=== PATIENT | male | born 1960 | race Two or more races ===

== ENCOUNTER 2017-10-04 18:32 | Emergency (ER) | payer MEDICAID ==
[~2017-10-04] VITALS: Ht 182.9 cm; Wt 95.0 kg
[2017-10-04] MEDS ORDERED: SODIUM CHLORIDE 0.9% 1,000 ML IV ONE (18:59)
[2017-10-04] MEDS ORDERED: KETOROLAC 30MG/ML VIAL IV ONE (19:00)
[2017-10-04 19:29] LABS: BASOPHILS % 0.5 % (0.0-2.0); EOSINOPHILS % 1.1 % (0.0-5.0); HEMATOCRIT. 40.6 % (42.0-52.0); HEMOGLOBIN. 13.7 g/dL (14.0-18.0); LYMPHOCYTES % 19.8 % (20.0-50.0); MEAN CORPUSCULAR HEMOGLOBIN 32.4 pg (28.0-32.0); MEAN CORPUSCULAR VOLUME 96.2 fL (80.0-94.0); MONOCYTES % 6.5 % (2.0-8.0); NEUTROPHILS % 72.1 % (40.0-76.0); PLATELET 254 x1000/uL (130-400); RED BLOOD CELL COUNT 4.22 mill/uL (4.7-6.1); RED CELL DISTRIBUTION WIDTH 13.4 % (11.6-14.6)
[2017-10-04 19:39] LABS: CARBON DIOXIDE 22 mEq/L (21-32); CHLORIDE 106 mEq/L (98-107)
[2017-10-04 19:53] LABS: ETHANOL BLOOD 306 mg/dL
[2017-10-04] MEDS ORDERED: MORPHINE SULFATE 4 MG/ML CPJ (NOT FOR IM USE) IV ONE (22:15)
[2017-10-04] MEDS ORDERED: ACETAMINOPHEN 325MG TABLET PO ONE (22:15)
[2017-10-05] MEDS ORDERED: GADOBENATE DIMEGLUMINE 529 MG/ML 10ML IV ONE (00:54)
[2017-10-05] MEDS ORDERED: HYDROCODONE/ACETAMINOPHEN 5/325MG TABLET PO ONE (02:00)
[2017-10-05 02:05] VITALS: BP 119/85
== END 2017-10-05 02:59 | disposition home or self-care (01) ==
LOC: ER 19:05
DX: M54.5 Low back pain (principal); I10 Essential (primary) hypertension; M51.26 Other intervertebral disc displacement, lumbar region; G89.29 Other chronic pain; R20.0 Anesthesia of skin
CPT/HCPCS: 36415; 72158; 80053; 85025; 96361; 96374; 99285; A9577; G0482; J1885; J7030; Z7610

== ENCOUNTER 2017-11-01 12:36 | Emergency (ER) | payer MEDICAID ==
[~2017-11-01] VITALS: Ht 175.3 cm; Wt 82.0 kg
[2017-11-01] MEDS ORDERED: CARI350T PO (12:45)
[2017-11-01] MEDS ORDERED: HYDR-523 PO (12:45)
[2017-11-01 14:55] VITALS: BP 101/56
[2017-11-01] MEDS ORDERED: ACETAMINOPHEN WITH CODEINE 300/30MG TABLET PO ONE (15:00)
== END 2017-11-01 16:02 | disposition home or self-care (01) ==
LOC: ER 12:56
DX: M17.12 Unilateral primary osteoarthritis, left knee (principal); I10 Essential (primary) hypertension
CPT/HCPCS: 73562; 99284

== ENCOUNTER 2018-11-28 15:22 | Inpatient (IN) | payer MEDICAID ==
[~2018-11-28] VITALS: Ht 188 cm; Wt 103.4 kg
[~2018-11-28 15:22] MED LIST: HYDR-523 PO; S350 PO
[2018-11-28] MEDS ORDERED: HYDR12.529 PO (15:34)
[2018-11-28] MEDS ORDERED: METHYLPREDNISOLONE SOD SUCC 125 MG/2 ML VIAL IV STA (15:47)
[2018-11-28] MEDS ORDERED: SODIUM CHLORIDE 0.9% 1,000 ML IV ONE (15:53)
[2018-11-28] MEDS ORDERED: DIPHENHYDRAMINE 50MG/ML VIAL IV ONE (16:00)
[2018-11-28] MEDS ORDERED: FAMOTIDINE 20MG/2ML VIAL IV ONE (16:00)
[2018-11-28 17:38] LABS: CHLORIDE 95 mEq/L (98-107)
[2018-11-28 17:45] LABS: BASOPHILS % 0.5 % (0.0-2.0); HEMATOCRIT. 37.7 % (42.0-52.0); HEMOGLOBIN. 12.8 g/dL (14.0-18.0); LYMPHOCYTES % 15.8 % (20.0-50.0); MEAN CORPUSCULAR HEMOGLOBIN 32.8 pg (28.0-32.0); MEAN CORPUSCULAR VOLUME 96.7 fL (80.0-94.0); MEAN PLATELET VOLUME 7.4 fl (7.4-10.4); MONOCYTES % 12.2 % (2.0-8.0); NEUTROPHILS % 70.5 % (40.0-76.0); PLATELET 322 x1000/uL (130-400); RED CELL DISTRIBUTION WIDTH 13.5 % (11.6-14.6)
[2018-11-28 18:06] LABS: PARTIAL THROMBOPLASTIN TIME 26.2 sec (23.4-31.0)
[2018-11-28 21:20] VITALS: BP 138/89
[2018-11-28] MEDS ORDERED: MAGNESIUM/ALUMINUM HYDROXIDE/SIMETHICONE 30ML UDC PO PRN (22:45)
[2018-11-28] MEDS ORDERED: IPRATROPIUM/ALBUTEROL 0.5-3(2.5)MG/3ML NEB INH PRN (22:45)
[2018-11-28] MEDS ORDERED: HYDROCODONE/ACETAMINOPHEN 10/325MG TABLET PO PRN (22:45)
[2018-11-28] MEDS ORDERED: LORAZEPAM 2MG/ML CPJ IV PRN (22:45)
[2018-11-28] MEDS: DIPHENHYDRAMINE 50MG/ML VIAL IV PRN (22:45)
[2018-11-28] MEDS: METHYLPREDNISOLONE SOD SUCC 125 MG/2 ML VIAL IV SCH (22:45)
[2018-11-28] MEDS ORDERED: GUAIFENESIN 200MG/10ML SUGAR FREE UDC PO PRN (22:45)
[2018-11-28] MEDS ORDERED: ACETAMINOPHEN 325MG TABLET PO PRN (22:45)
[2018-11-28] MEDS ORDERED: NA PHOS,M-B/NA PHOS,DI-BA ENEMA 118ML PR PRN (22:45)
[2018-11-28] MEDS ORDERED: CLONIDINE 0.1MG TABLET PO PRN (22:45)
[2018-11-28] MEDS ORDERED: DOCUSATE SODIUM 100MG CAPSULE PO PRN (22:45)
[2018-11-28] MEDS ORDERED: ONDANSETRON HCL 4MG/2ML INJ IV PRN (22:45)
[2018-11-28] MEDS ORDERED: MORPHINE SULFATE 2 MG/ML CPJ (NOT FOR IM USE) IV PRN (22:45)
[2018-11-28] MEDS ORDERED: ENOXAPARIN 40MG/0.4ML SYR SUBCUT SCH (23:00)
[2018-11-29] VITALS: BP 133/89
[2018-11-29 00:57] LABS: CHLORIDE 100 mEq/L (98-107)
[2018-11-29] MEDS: HYDROCODONE/ACETAMINOPHEN 10/325MG TABLET PO PRN ×3 (01:17→11:23)
[2018-11-29] MEDS ORDERED: ASPI-986 PO (02:09)
[2018-11-29] MEDS ORDERED: ALLO300T2 PO (02:09)
[2018-11-29 04:00] VITALS: BP 129/81
[2018-11-29] MEDS: METHYLPREDNISOLONE SOD SUCC 125 MG/2 ML VIAL IV SCH ×2 (05:25→11:16)
[2018-11-29] MEDS: DIPHENHYDRAMINE 50MG/ML VIAL IV PRN (05:25)
[2018-11-29 07:50] LABS: HEMATOCRIT. 37.1 % (42.0-52.0); HEMOGLOBIN. 12.7 g/dL (14.0-18.0); MEAN CORPUSCULAR HEMOGLOBIN 32.6 pg (28.0-32.0); MEAN CORPUSCULAR VOLUME 95.4 fL (80.0-94.0); MEAN PLATELET VOLUME 7.2 fl (7.4-10.4); MONOCYTES % 2.3 % (2.0-8.0); NEUTROPHILS % 84.7 % (40.0-76.0); PLATELET 345 x1000/uL (130-400); RED BLOOD CELL COUNT 3.89 mill/uL (4.7-6.1); RED CELL DISTRIBUTION WIDTH 13.3 % (11.6-14.6)
[2018-11-29 08:00] VITALS: BP 151/95
[2018-11-29 11:56] LABS: CHLORIDE 98 mEq/L (98-107)
[2018-11-29 12:00] VITALS: BP 155/92
[2018-11-29 12:07] LABS: LDL CHOLESTEROL 66 mg/dL (5-100)
[2018-11-29 12:10] LABS: HDL CHOLESTEROL 66 mg/dL (40-59)
[2018-11-29 14:37] VITALS: BP 140/82
[2018-11-29 16:00] VITALS: BP 139/88
== END 2018-11-29 17:17 | disposition home or self-care (01) | DRG 811 ==
LOC: ER 15:22 → 7WST 19:38 → ENRESERV 20:15
PROVIDERS: ADMIT Internal Medicine; ATTEND Internal Medicine
DX: T78.3XXA Angioneurotic edema, initial encounter (principal); E87.1 Hypo-osmolality and hyponatremia; E87.8 Other disorders of electrolyte and fluid balance, not elsewhere classified; G89.4 Chronic pain syndrome; I10 Essential (primary) hypertension; M10.9 Gout, unspecified; M19.90 Unspecified osteoarthritis, unspecified site; Z79.899 Other long term (current) drug therapy; Z79.82 Long term (current) use of aspirin
CPT/HCPCS: 36415; 71045; 80048; 80061; 84484; 93005; 96361; 96374; 96375; 99285; J1200; J1650; J2930; J3490; J7030

== ENCOUNTER 2019-03-09 06:16 | Inpatient (IN) | payer MEDICAID ==
[2019-03-09] VITALS (50 sets, daily range): BP systolic 35–170; BP diastolic 28–109
[~2019-03-09] VITALS: Ht 185.4 cm; Wt 101.2 kg
[~2019-03-09 06:16] MED LIST changes: +ALLO300T2 PO; +ASPI-986 PO; +HYDR12.529 PO
[2019-03-09 07:26] LABS: PARTIAL THROMBOPLASTIN TIME 27.1 sec (23.4-31.0)
[2019-03-09] MEDS ORDERED: BACITRACIN 15GM TUBE TOP ONE (07:58)
[2019-03-09] MEDS ORDERED: LIDOCAINE HCL/EPINEPHRINE 1%-EPI 1:100,000 20 ML VIAL ONE (07:58)
[2019-03-09] MEDS ORDERED: BACITRACIN 50,000 UNITS/VIAL ONE (07:58)
[2019-03-09] MEDS ORDERED: NORMAL SALINE 0.9% 10 ML SYR ONE (07:58)
[2019-03-09] MEDS ORDERED: THROMBIN (BOVINE) 5000 UNITS/VIAL TOP ONE ×2 (07:58→13:21)
[2019-03-09] MEDS ORDERED: CLON0.2T PO (09:09)
[2019-03-09] MEDS ORDERED: APIX5TAB PO (09:09)
[2019-03-09] MEDS ORDERED: HYDR25TA PO (09:09)
[2019-03-09] MEDS ORDERED: IBUP-2030 PO (09:09)
[2019-03-09] MEDS ORDERED: TYLENOL #4 PO (09:19)
[2019-03-09] MEDS ORDERED: ASPI-1159 PO (09:21)
[2019-03-09] MEDS ORDERED: ONDANSETRON HCL 4MG/2ML INJ IV PRN ×2 (13:30→14:15)
[2019-03-09] MEDS ORDERED: MORPHINE SULFATE 4 MG/ML CPJ (NOT FOR IM USE) IV PRN (13:30)
[2019-03-09] MEDS ORDERED: HYDROMORPHONE HCL/PF 2MG/ML CPJ IV PRN (13:30)
[2019-03-09] MEDS ORDERED: MEPERIDINE HCL/PF 25MG/ML CPJ IV PRN (13:30)
[2019-03-09] MEDS ORDERED: FENTANYL CITRATE/PF 50MCG/ML 2ML VIAL IV PRN (13:30)
[2019-03-09] MEDS ORDERED: NICARDIPINE 100 MG in SODIUM CHLORIDE 0.9% 60 ML IV PRN (14:15)
[2019-03-09] MEDS ORDERED: HYDROCODONE/ACETAMINOPHEN 5/325MG TABLET PO PRN (14:15)
[2019-03-09] MEDS ORDERED: NALOXONE INJ IV PRN (14:45)
[2019-03-09] MEDS ORDERED: ONDANSETRON INJ IV PRN (14:45)
[2019-03-09] MEDS ORDERED: HYDROMORPHONE PCA 10MG/50ML IV PRN (15:00)
[2019-03-09] MEDS: DEXT 5%/LACTATED RINGERS 1,000 ML IV SCH ×2 (15:24→20:55)
[2019-03-09] MEDS: CEFAZOLIN 1000MG PREMIX 50 ML IV SCH ×2 (16:35→22:28)
[2019-03-09] MEDS ORDERED: NICOTINE 21MG PATCH TD NR (18:10)
[2019-03-09] MEDS ORDERED: CEFAZOLIN SODIUM 1000MG/VIAL IV SCH (22:00)
[2019-03-10] VITALS (48 sets, daily range): BP systolic 51–150; BP diastolic 30–92
[2019-03-10] MEDS: DIPHENHYDRAMINE INJ IV PRN ×2 (01:11→05:09)
[2019-03-10] MEDS: IPRATROPIUM/ALBUTEROL 0.5-3(2.5)MG/3ML NEB HHN SCH ×4 (01:55→21:28)
[2019-03-10] MEDS: BUDESONIDE 0.5MG/2ML NEB HHN SCH ×3 (02:03→21:27)
[2019-03-10] MEDS: DEXT 5%/LACTATED RINGERS 1,000 ML IV SCH ×2 (03:35→15:02)
[2019-03-10 05:52] LABS: BASOPHILS % 0.1 % (0.0-2.0); HEMOGLOBIN. 11.6 g/dL (14.0-18.0); LYMPHOCYTES % 7.4 % (20.0-50.0); MEAN CORPUSCULAR HEMOGLOBIN 32.2 pg (28.0-32.0); MEAN CORPUSCULAR VOLUME 94.4 fL (80.0-94.0); MEAN PLATELET VOLUME 7.6 fl (7.4-10.4); MONOCYTES % 7.3 % (2.0-8.0); NEUTROPHILS % 85.2 % (40.0-76.0); PLATELET 252 x1000/uL (130-400); RED CELL DISTRIBUTION WIDTH 14.6 % (11.6-14.6)
[2019-03-10 05:59] LABS: CHLORIDE 100 mEq/L (98-107)
[2019-03-10] MEDS: CEFAZOLIN 1000MG PREMIX 50 ML IV SCH ×3 (06:05→22:12)
[2019-03-10] MEDS ORDERED: OXYCODONE HCL/ACETAMINOPHEN 5/325MG TABLET PO PRN (07:15)
[2019-03-10] MEDS: MORPHINE SULFATE 4 MG/ML CPJ (NOT FOR IM USE) IV PRN (10:22)
[2019-03-10] MEDS: NICOTINE 21MG PATCH TD SCH (10:27)
[2019-03-10] MEDS: OXYCODONE HCL/ACETAMINOPHEN 5/325MG TABLET PO PRN ×2 (11:10→18:49)
[2019-03-10] MEDS ORDERED: SODIUM CHLORIDE 0.9% 1,000 ML IV NR (22:30)
[2019-03-11] VITALS (7 sets, daily range): BP systolic 105–127; BP diastolic 65–82
[2019-03-11] MEDS: MORPHINE SULFATE 4 MG/ML CPJ (NOT FOR IM USE) IV PRN ×6 (00:19→22:24)
[2019-03-11] MEDS: OXYCODONE HCL/ACETAMINOPHEN 5/325MG TABLET PO PRN ×4 (02:32→21:15)
[2019-03-11] MEDS: CEFAZOLIN 1000MG PREMIX 50 ML IV SCH ×2 (05:47→13:02)
[2019-03-11 06:14] LABS: CHLORIDE 101 mEq/L (98-107)
[2019-03-11 06:30] LABS: BASOPHILS % 0.4 % (0.0-2.0); EOSINOPHILS % 0.1 % (0.0-5.0); HEMATOCRIT. 29.9 % (42.0-52.0); HEMOGLOBIN. 10.2 g/dL (14.0-18.0); LYMPHOCYTES % 10.6 % (20.0-50.0); MEAN CORPUSCULAR HEMOGLOBIN 32.6 pg (28.0-32.0); MEAN CORPUSCULAR VOLUME 95.4 fL (80.0-94.0); MEAN PLATELET VOLUME 7.6 fl (7.4-10.4); MONOCYTES % 6.9 % (2.0-8.0); PLATELET 219 x1000/uL (130-400); RED BLOOD CELL COUNT 3.13 mill/uL (4.7-6.1); RED CELL DISTRIBUTION WIDTH 14.4 % (11.6-14.6)
[2019-03-11] MEDS: BUDESONIDE 0.5MG/2ML NEB HHN SCH ×2 (08:18→20:25)
[2019-03-11] MEDS: IPRATROPIUM/ALBUTEROL 0.5-3(2.5)MG/3ML NEB HHN SCH ×3 (08:19→20:25)
[2019-03-11] MEDS: NICOTINE 21MG PATCH TD SCH (08:40)
[2019-03-11] MEDS: DEXT 5%/LACTATED RINGERS 1,000 ML IV SCH (13:02)
[2019-03-11] MEDS ORDERED: DEXTROSE 50% WATER 50ML SYRINGE IV PRN (14:45)
[2019-03-11] MEDS: DOCUSATE SODIUM 250MG CAPSULE PO SCH (15:07)
[2019-03-11] MEDS: BLOOD SUGAR DIAGNOSTIC STRIP TEST SCH ×2 (16:48→21:15)
[2019-03-11] MEDS: INSULIN LISPRO 100 UNITS/ML SUBCUT SCH ×2 (16:59→21:00)
[2019-03-11] MEDS ORDERED: BISACODYL 5MG TABLET PO PRN (17:00)
[2019-03-11] MEDS: DIPHENHYDRAMINE 50MG/ML VIAL IV PRN ×2 (18:06→22:59)
[2019-03-12] VITALS: BP 110/63
[2019-03-12] MEDS: DEXT 5%/LACTATED RINGERS 1,000 ML IV SCH ×3 (00:39→13:06)
[2019-03-12] MEDS: IPRATROPIUM/ALBUTEROL 0.5-3(2.5)MG/3ML NEB HHN SCH ×4 (01:55→20:18)
[2019-03-12] MEDS: MORPHINE SULFATE 4 MG/ML CPJ (NOT FOR IM USE) IV PRN ×4 (02:27→20:32)
[2019-03-12] MEDS: OXYCODONE HCL/ACETAMINOPHEN 5/325MG TABLET PO PRN ×3 (03:40→18:12)
[2019-03-12 04:00] VITALS: BP 115/79
[2019-03-12] MEDS: DIPHENHYDRAMINE 50MG/ML VIAL IV PRN ×3 (05:23→21:59)
[2019-03-12 06:31] LABS: BASOPHILS % 0.3 % (0.0-2.0); CHLORIDE 100 mEq/L (98-107); EOSINOPHILS % 0.8 % (0.0-5.0); HEMATOCRIT. 26.1 % (42.0-52.0); LYMPHOCYTES % 14.8 % (20.0-50.0); MEAN CORPUSCULAR HEMOGLOBIN 32.7 pg (28.0-32.0); MEAN CORPUSCULAR VOLUME 95.1 fL (80.0-94.0); MEAN PLATELET VOLUME 7.4 fl (7.4-10.4); MONOCYTES % 8.4 % (2.0-8.0); NEUTROPHILS % 75.7 % (40.0-76.0); PLATELET 199 x1000/uL (130-400); RED BLOOD CELL COUNT 2.74 mill/uL (4.7-6.1); RED CELL DISTRIBUTION WIDTH 14.3 % (11.6-14.6)
[2019-03-12] MEDS: INSULIN LISPRO 100 UNITS/ML SUBCUT SCH ×4 (06:36→21:55)
[2019-03-12] MEDS: BLOOD SUGAR DIAGNOSTIC STRIP TEST SCH ×4 (06:36→21:55)
[2019-03-12 08:00] VITALS: BP 101/62
[2019-03-12] MEDS: BUDESONIDE 0.5MG/2ML NEB HHN SCH (08:33)
[2019-03-12] MEDS: DOCUSATE SODIUM 250MG CAPSULE PO SCH (08:39)
[2019-03-12] MEDS: NICOTINE 21MG PATCH TD SCH (08:41)
[2019-03-12] MEDS: POLYETHYLENE GLYCOL 3350 (17GM) 1 DOSE PACK PO SCH (09:15)
[2019-03-12 12:00] VITALS: BP 108/78
[2019-03-12 16:00] VITALS: BP 108/73
[2019-03-12] MEDS ORDERED: SODIUM CHLORIDE 0.9% 500 ML IV NR (18:00)
[2019-03-12 20:00] VITALS: BP 111/60
[2019-03-13] VITALS: BP 119/70
[2019-03-13] MEDS: MORPHINE SULFATE 4 MG/ML CPJ (NOT FOR IM USE) IV PRN ×5 (00:51→21:15)
[2019-03-13] MEDS: IPRATROPIUM/ALBUTEROL 0.5-3(2.5)MG/3ML NEB HHN SCH ×3 (01:08→21:50)
[2019-03-13] MEDS: BUDESONIDE 0.5MG/2ML NEB HHN SCH (01:09)
[2019-03-13] MEDS: OXYCODONE HCL/ACETAMINOPHEN 5/325MG TABLET PO PRN ×4 (02:13→22:30)
[2019-03-13 04:00] VITALS: BP 121/76
[2019-03-13] MEDS: DIPHENHYDRAMINE 50MG/ML VIAL IV PRN ×2 (04:00→11:24)
[2019-03-13] MEDS: DEXT 5%/LACTATED RINGERS 1,000 ML IV SCH ×2 (04:03→11:43)
[2019-03-13] MEDS: BLOOD SUGAR DIAGNOSTIC STRIP TEST SCH ×4 (06:25→21:26)
[2019-03-13] MEDS: INSULIN LISPRO 100 UNITS/ML SUBCUT SCH ×4 (06:26→21:00)
[2019-03-13 07:13] LABS: BASOPHILS % 0.3 % (0.0-2.0); EOSINOPHILS % 1.2 % (0.0-5.0); HEMATOCRIT. 25.1 % (42.0-52.0); HEMOGLOBIN. 8.8 g/dL (14.0-18.0); LYMPHOCYTES % 14.8 % (20.0-50.0); MEAN CORPUSCULAR HEMOGLOBIN 33.2 pg (28.0-32.0); MEAN CORPUSCULAR VOLUME 95.1 fL (80.0-94.0); MEAN PLATELET VOLUME 7.2 fl (7.4-10.4); MONOCYTES % 9.7 % (2.0-8.0); PLATELET 224 x1000/uL (130-400); RED BLOOD CELL COUNT 2.64 mill/uL (4.7-6.1); RED CELL DISTRIBUTION WIDTH 14.2 % (11.6-14.6)
[2019-03-13 07:42] LABS: CHLORIDE 103 mEq/L (98-107)
[2019-03-13 08:00] VITALS: BP 134/68
[2019-03-13] MEDS: POLYETHYLENE GLYCOL 3350 (17GM) 1 DOSE PACK PO SCH (08:31)
[2019-03-13] MEDS: NICOTINE 21MG PATCH TD SCH (08:31)
[2019-03-13] MEDS: DOCUSATE SODIUM 250MG CAPSULE PO SCH (08:31)
[2019-03-13 12:06] VITALS: BP 114/61
[2019-03-13 16:00] VITALS: BP 146/73
[2019-03-13 20:00] VITALS: BP 124/81
[2019-03-14] VITALS: BP 123/76
[2019-03-14] MEDS: MORPHINE SULFATE 4 MG/ML CPJ (NOT FOR IM USE) IV PRN ×5 (01:35→23:35)
[2019-03-14] MEDS: IPRATROPIUM/ALBUTEROL 0.5-3(2.5)MG/3ML NEB HHN SCH ×4 (03:50→20:00)
[2019-03-14 04:00] VITALS: BP 115/69
[2019-03-14] MEDS: DEXT 5%/LACTATED RINGERS 1,000 ML IV SCH ×2 (04:25→20:44)
[2019-03-14] MEDS: OXYCODONE HCL/ACETAMINOPHEN 5/325MG TABLET PO PRN ×3 (04:34→18:47)
[2019-03-14] MEDS: BLOOD SUGAR DIAGNOSTIC STRIP TEST SCH ×4 (07:04→20:35)
[2019-03-14] MEDS: INSULIN LISPRO 100 UNITS/ML SUBCUT SCH ×4 (07:05→20:53)
[2019-03-14 08:00] VITALS: BP 119/72
[2019-03-14] MEDS: NICOTINE 21MG PATCH TD SCH (08:23)
[2019-03-14] MEDS: DOCUSATE SODIUM 250MG CAPSULE PO SCH (08:23)
[2019-03-14] MEDS: POLYETHYLENE GLYCOL 3350 (17GM) 1 DOSE PACK PO SCH (08:24)
[2019-03-14 12:00] VITALS: BP 110/68
[2019-03-14 16:00] VITALS: BP 144/82
[2019-03-14 20:00] VITALS: BP 125/75
[2019-03-14] MEDS: DIPHENHYDRAMINE 50MG/ML VIAL IV PRN (20:57)
[2019-03-15] VITALS: BP 120/71
[2019-03-15] MEDS: IPRATROPIUM/ALBUTEROL 0.5-3(2.5)MG/3ML NEB HHN SCH ×5 (01:10→20:28)
[2019-03-15] MEDS: OXYCODONE HCL/ACETAMINOPHEN 5/325MG TABLET PO PRN ×4 (02:03→21:27)
[2019-03-15 04:00] VITALS: BP 110/64
[2019-03-15] MEDS: MORPHINE SULFATE 4 MG/ML CPJ (NOT FOR IM USE) IV PRN ×3 (05:42→23:27)
[2019-03-15] MEDS: BLOOD SUGAR DIAGNOSTIC STRIP TEST SCH ×4 (05:46→21:10)
[2019-03-15 06:14] LABS: BASOPHILS % 0.3 % (0.0-2.0); EOSINOPHILS % 1.7 % (0.0-5.0); HEMATOCRIT. 26.5 % (42.0-52.0); HEMOGLOBIN. 9.2 g/dL (14.0-18.0); LYMPHOCYTES % 15.6 % (20.0-50.0); MEAN CORPUSCULAR HEMOGLOBIN 32.8 pg (28.0-32.0); MEAN CORPUSCULAR VOLUME 93.8 fL (80.0-94.0); MEAN PLATELET VOLUME 6.7 fl (7.4-10.4); MONOCYTES % 11.2 % (2.0-8.0); NEUTROPHILS % 71.2 % (40.0-76.0); PLATELET 346 x1000/uL (130-400); RED BLOOD CELL COUNT 2.82 mill/uL (4.7-6.1); RED CELL DISTRIBUTION WIDTH 14.3 % (11.6-14.6)
[2019-03-15 06:29] LABS: CHLORIDE 102 mEq/L (98-107)
[2019-03-15] MEDS: INSULIN LISPRO 100 UNITS/ML SUBCUT SCH ×4 (06:32→21:00)
[2019-03-15 08:00] VITALS: BP 126/70
[2019-03-15] MEDS: DOCUSATE SODIUM 250MG CAPSULE PO SCH (09:19)
[2019-03-15] MEDS: NICOTINE 21MG PATCH TD SCH (09:19)
[2019-03-15] MEDS: POLYETHYLENE GLYCOL 3350 (17GM) 1 DOSE PACK PO SCH (09:19)
[2019-03-15] MEDS ORDERED: MORPHINE SULFATE 4 MG/ML CPJ (NOT FOR IM USE) IV PRN (10:00)
[2019-03-15 12:00] VITALS: BP 107/65
[2019-03-15] MEDS: DEXT 5%/LACTATED RINGERS 1,000 ML IV SCH (12:47)
[2019-03-15 16:00] VITALS: BP 109/60
[2019-03-15] MEDS: DIPHENHYDRAMINE 50MG/ML VIAL IV PRN (17:49)
[2019-03-15 20:00] VITALS: BP 101/64
[2019-03-16] VITALS: BP 105/66
[2019-03-16] MEDS: IPRATROPIUM/ALBUTEROL 0.5-3(2.5)MG/3ML NEB HHN SCH ×3 (01:54→18:00)
[2019-03-16] MEDS: MORPHINE SULFATE 4 MG/ML CPJ (NOT FOR IM USE) IV PRN ×3 (03:28→13:33)
[2019-03-16 04:00] VITALS: BP 119/72
[2019-03-16] MEDS: OXYCODONE HCL/ACETAMINOPHEN 5/325MG TABLET PO PRN ×2 (04:51→11:32)
[2019-03-16] MEDS: DEXT 5%/LACTATED RINGERS 1,000 ML IV SCH ×2 (06:09→13:33)
[2019-03-16] MEDS: BLOOD SUGAR DIAGNOSTIC STRIP TEST SCH ×3 (06:16→16:45)
[2019-03-16] MEDS: INSULIN LISPRO 100 UNITS/ML SUBCUT SCH ×3 (06:22→17:15)
[2019-03-16 06:23] LABS: BASOPHILS % 0.3 % (0.0-2.0); EOSINOPHILS % 1.3 % (0.0-5.0); HEMATOCRIT. 27.3 % (42.0-52.0); HEMOGLOBIN. 9.4 g/dL (14.0-18.0); LYMPHOCYTES % 14.6 % (20.0-50.0); MEAN CORPUSCULAR HEMOGLOBIN 32.4 pg (28.0-32.0); MEAN CORPUSCULAR VOLUME 93.6 fL (80.0-94.0); MEAN PLATELET VOLUME 6.5 fl (7.4-10.4); MONOCYTES % 9.1 % (2.0-8.0); NEUTROPHILS % 74.7 % (40.0-76.0); PLATELET 447 x1000/uL (130-400); RED BLOOD CELL COUNT 2.92 mill/uL (4.7-6.1); RED CELL DISTRIBUTION WIDTH 13.8 % (11.6-14.6)
[2019-03-16 08:00] VITALS: BP 162/92
[2019-03-16 08:02] LABS: CHLORIDE 101 mEq/L (98-107)
[2019-03-16] MEDS ORDERED: CLONIDINE 0.1MG TABLET PO PRN ×2 (08:45→09:00)
[2019-03-16] MEDS: NICOTINE 21MG PATCH TD SCH (08:54)
[2019-03-16] MEDS: DOCUSATE SODIUM 250MG CAPSULE PO SCH (08:54)
[2019-03-16] MEDS: POLYETHYLENE GLYCOL 3350 (17GM) 1 DOSE PACK PO SCH (08:54)
[2019-03-16 12:15] VITALS: BP 117/68
[2019-03-16] MEDS ORDERED: HYDROMORPHONE HCL/PF 2MG/ML CPJ IV PRN (13:45)
[2019-03-16 16:00] VITALS: BP 110/69
[2019-03-16 19:05] VITALS: BP 110/69
== END 2019-03-16 19:55 | DRG 304 ==
LOC: OR 06:16 → MICUNO 06:17 → 6EST 03-10 12:11 → 5WST 03-10 23:45
PROVIDERS: ADMIT Internal Medicine; ATTEND Internal Medicine
PROC: 0SG10K1 Fusion of 2 or more Lumbar Vertebral Joints with Nonautologous Tissue Substitute, Posterior Approach, Posterior Column, Open Approach (ICD-10-PCS; principal; 2019-03-09)
PROC: 0SG30K1 Fusion of Lumbosacral Joint with Nonautologous Tissue Substitute, Posterior Approach, Posterior Column, Open Approach (ICD-10-PCS; 2019-03-09)
PROC: 01NB0ZZ Release Lumbar Nerve, Open Approach (ICD-10-PCS; 2019-03-09)
DX: M48.00 Spinal stenosis, site unspecified (principal); G82.50 Quadriplegia, unspecified; M47.16 Other spondylosis with myelopathy, lumbar region; E88.2 Lipomatosis, not elsewhere classified; I10 Essential (primary) hypertension; D53.9 Nutritional anemia, unspecified; F17.210 Nicotine dependence, cigarettes, uncomplicated; K59.00 Constipation, unspecified; M47.26 Other spondylosis with radiculopathy, lumbar region; M48.061 Spinal stenosis, lumbar region without neurogenic claudication; Z88.8 Allergy status to other drugs, medicaments and biological substances; R73.9 Hyperglycemia, unspecified; Z71.6 Tobacco abuse counseling
CPT/HCPCS: 36415; 71045; 72100; 76000; 80048; 80320; 82607; 82746; 82962; 83036; 86850; 86900; 93005; 93970; 94640; 95925; 95926; 95928; 95929; 97110; 97116; 97163; 97166; 97530; 97535; J0690; J1170; J1200; J1815; J2270; J3490; J7040; J7042; J7050; J7121; J7620; J7626; G0480

== ENCOUNTER 2019-06-02 20:52 | Emergency (ER) | payer MEDICAID ==
[~2019-06-02] VITALS: Ht 180.3 cm; Wt 101.0 kg
[~2019-06-02 20:52] MED LIST changes: +APIX5TAB PO; +ASPI-1393 PO; -ASPI-986 PO; +CLON0.2T PO; -HYDR-523 PO; -HYDR12.529 PO; +HYDR25TA PO; +IBUP-2030 PO; +TYLENOL #4 PO
[2019-06-02 23:19] LABS: CLARITY URINE CLOUDY (CLEAR); COLOR URINE AMBER (YELLOW); KETONES URINE TRACE (NEGATIVE); LEUKOCYTE ESTERASE URINE 2+ (NEGATIVE); NITRITE URINE NEGATIVE (NEGATIVE); OCCULT BLOOD URINE NEGATIVE (NEGATIVE); PROTEIN URINE NEGATIVE (NEGATIVE); UROBILINOGEN URINE 0.2 E.U./dL (0.2-1.0)
[2019-06-03 00:59] VITALS: BP 104/85
== END 2019-06-03 00:57 | disposition home or self-care (01) ==
LOC: ER 20:52
DX: N39.0 Urinary tract infection, site not specified (principal); M54.9 Dorsalgia, unspecified; R20.2 Paresthesia of skin; I10 Essential (primary) hypertension; M54.30 Sciatica, unspecified side; F17.210 Nicotine dependence, cigarettes, uncomplicated; Z93.0 Tracheostomy status; Z79.82 Long term (current) use of aspirin
CPT/HCPCS: 82962; 87077; 87186; 99283

== ENCOUNTER 2020-05-24 12:46 | Inpatient (IN) | payer MEDICAID ==
[~2020-05-24] VITALS: Ht 180.3 cm; Wt 108.6 kg
[~2020-05-24 12:46] MED LIST changes: -ASPI-1393 PO; +ASPI-1497 PO; +CARI350T28 PO; -S350 PO
[2020-05-24 16:14] LABS: BASOPHILS % 0.5 % (0.0-2.0); EOSINOPHILS % 1.1 % (0.0-5.0); HEMATOCRIT. 38.8 % (42.0-52.0); HEMOGLOBIN. 13.1 g/dL (14.0-18.0); LYMPHOCYTES % 23.7 % (20.0-50.0); MEAN CORPUSCULAR HEMOGLOBIN 31.2 pg (28.0-32.0); MEAN CORPUSCULAR VOLUME 92.8 fL (80.0-94.0); MEAN PLATELET VOLUME 7.1 fl (7.4-10.4); MONOCYTES % 7.1 % (2.0-8.0); NEUTROPHILS % 67.6 % (40.0-76.0); PLATELET 338 x1000/uL (130-400); RED BLOOD CELL COUNT 4.18 mill/uL (4.7-6.1); RED CELL DISTRIBUTION WIDTH 17.2 % (11.6-14.6)
[2020-05-24 16:15] LABS: CHLORIDE 104 mEq/L (98-107)
[2020-05-24 16:20] LABS: PARTIAL THROMBOPLASTIN TIME 27.4 sec (23.4-31.0); PROTHROMBIN TIME 10.1 sec (9.6-11.0)
[2020-05-24 16:54] LABS: CLARITY URINE CLEAR (CLEAR); COLOR URINE YELLOW (YELLOW); KETONES URINE TRACE (NEGATIVE); LEUKOCYTE ESTERASE URINE TRACE (NEGATIVE); NITRITE URINE NEGATIVE (NEGATIVE); OCCULT BLOOD URINE NEGATIVE (NEGATIVE); PROTEIN URINE TRACE (NEGATIVE); SPECIFIC GRAVITY URINE 1.024 (1.005-1.030)
[2020-05-24] MEDS ORDERED: GADOBENATE DIMEGLUMINE 529 MG/ML 10ML IV ONE (17:55)
[2020-05-24] MEDS ORDERED: VANCOMYCIN 1 G PREMIX 200 ML IV SCH (18:45)
[2020-05-24] MEDS ORDERED: SODIUM CHLORIDE 0.9% 1000ML BAG (SEPSIS BOLUS) IV ONE (18:45)
[2020-05-24] MEDS ORDERED: CEFTRIAXONE 2 G PREMIX 50 ML IV ONE (18:45)
[2020-05-24] MEDS ORDERED: DIPHENHYDRAMINE 50MG/ML VIAL IV ONE (21:15)
[2020-05-24] MEDS: DEXT 5%/LACTATED RINGERS 1,000 ML IV SCH (21:30)
[2020-05-24 22:25] VITALS: BP 139/92
[2020-05-24] MEDS ORDERED: MAGNESIUM/ALUMINUM HYDROXIDE/SIMETHICONE 30ML UDC PO PRN (22:45)
[2020-05-24] MEDS ORDERED: HYDROCODONE/ACETAMINOPHEN 5/325MG TABLET PO PRN (22:45)
[2020-05-24] MEDS ORDERED: CLONIDINE 0.1MG TABLET PO PRN (22:45)
[2020-05-24] MEDS ORDERED: MORPHINE SULFATE 2 MG/ML CPJ (NOT FOR IM USE) IV PRN (22:45)
[2020-05-24] MEDS ORDERED: DOCUSATE SODIUM 100MG CAPSULE PO PRN (22:45)
[2020-05-24] MEDS ORDERED: PIPERACILLIN/TAZ 3.375G PREMIX 50 ML IV SCH (22:45)
[2020-05-24] MEDS ORDERED: IPRATROPIUM/ALBUTEROL 0.5-3(2.5)MG/3ML NEB NEB PRN (22:45)
[2020-05-24] MEDS ORDERED: ACETAMINOPHEN 325MG TABLET PO PRN (22:45)
[2020-05-25] VITALS: BP 121/82
[2020-05-25] MEDS: PIPERACILLIN/TAZOBACTAM 3.375 G in DEXT 5% WATER 100 ML IV SCH ×3 (01:26→12:00)
[2020-05-25] MEDS: DIPHENHYDRAMINE 50MG/ML VIAL IV PRN (01:41)
[2020-05-25] MEDS: LINEZOLID 600 MG PREMIX 300 ML IV SCH ×2 (02:48→13:00)
[2020-05-25 04:00] VITALS: BP 108/78
[2020-05-25 06:48] LABS: *AMPHETAMINES SCREEN URINE NEGATIVE (NEGATIVE); *BARBITURATES SCREEN URINE NEGATIVE (NEGATIVE)
[2020-05-25 06:49] LABS: *BENZODIAZEPINES SCREEN URINE NEGATIVE (NEGATIVE); *COCAINE SCREEN URINE PRESUMTIVE POSITIVE (NEGATIVE); CANNABINOID URINE SCREEN NEGATIVE (NEGATIVE); METHADONE URINE SCREEN NEGATIVE (NEGATIVE); OPIATES URINE SCREEN PRESUMTIVE POSITIVE (NEGATIVE); PHENCYCLIDINE URINE SCREEN NEGATIVE (NEGATIVE)
[2020-05-25 07:22] LABS: BASOPHILS % 0.4 % (0.0-2.0); EOSINOPHILS % 2.5 % (0.0-5.0); HEMATOCRIT. 34.3 % (42.0-52.0); HEMOGLOBIN. 11.8 g/dL (14.0-18.0); LYMPHOCYTES % 21.4 % (20.0-50.0); MEAN CORPUSCULAR HEMOGLOBIN 31.6 pg (28.0-32.0); MEAN CORPUSCULAR VOLUME 92.2 fL (80.0-94.0); MEAN PLATELET VOLUME 7.1 fl (7.4-10.4); MONOCYTES % 8.4 % (2.0-8.0); NEUTROPHILS % 67.3 % (40.0-76.0); PLATELET 263 x1000/uL (130-400); RED BLOOD CELL COUNT 3.72 mill/uL (4.7-6.1); RED CELL DISTRIBUTION WIDTH 16.6 % (11.6-14.6)
[2020-05-25 07:41] LABS: CHLORIDE 107 mEq/L (98-107)
[2020-05-25 07:49] LABS: LDL CHOLESTEROL 47 mg/dL (5-100)
[2020-05-25 07:51] LABS: HDL CHOLESTEROL 101 mg/dL (40-59)
[2020-05-25 08:00] VITALS: BP 114/81
[2020-05-25] MEDS: DEXT 5%/LACTATED RINGERS 1,000 ML IV SCH ×2 (09:19→22:47)
[2020-05-25] MEDS ORDERED: THROMBIN (BOVINE) 5000 UNITS/VIAL TOP ONE ×2 (12:44→12:45)
[2020-05-25] MEDS ORDERED: LIDOCAINE HCL/EPINEPHRINE 1%-EPI 1:100,000 20 ML VIAL ONE (12:44)
[2020-05-25] MEDS ORDERED: BACITRACIN 50,000 UNITS/VIAL ONE (12:45)
[2020-05-25] MEDS ORDERED: FENTANYL CITRATE/PF 50MCG/ML 2ML VIAL ONE (13:51)
[2020-05-25] MEDS ORDERED: GLYCOPYRROLATE 0.2 MG/ML 2ML VIAL ONE (13:52)
[2020-05-25] MEDS ORDERED: LIDOCAINE HCL/PF 1% 10 MG/ML 5ML VIAL ONE (13:52)
[2020-05-25] MEDS ORDERED: PROPOFOL 200MG/20ML VIAL IV ONE (13:52)
[2020-05-25] MEDS ORDERED: ROCURONIUM BROMIDE 10MG/ML VIAL 5ML IV ONE ×2 (13:55→14:38)
[2020-05-25] MEDS ORDERED: NICARDIPINE 100 MG in SODIUM CHLORIDE 0.9% 60 ML IV PRN (15:00)
[2020-05-25] MEDS ORDERED: MORPHINE SULFATE 4 MG/ML CPJ (NOT FOR IM USE) IV PRN (15:00)
[2020-05-25] MEDS ORDERED: ALBUTEROL (0.5%) 2.5MG/0.5ML NEB HHN NR (17:30)
[2020-05-25] MEDS ORDERED: METOCLOPRAMIDE HCL 10MG/2ML VIAL IV PRN (17:30)
[2020-05-25] MEDS ORDERED: ONDANSETRON HCL 4MG/2ML INJ IV PRN (17:30)
[2020-05-25] MEDS ORDERED: MEPERIDINE HCL/PF 25MG/ML CPJ IV PRN (17:30)
[2020-05-25] MEDS ORDERED: HYDROMORPHONE HCL/PF 2MG/ML (OR) ONE (18:09)
[2020-05-25] MEDS: HYDROMORPHONE HCL/PF 2MG/ML CPJ IV PRN ×4 (18:10→19:01)
[2020-05-25] MEDS ORDERED: NALOXONE INJ IV PRN (18:15)
[2020-05-25] MEDS ORDERED: DIPHENHYDRAMINE INJ IV PRN (18:15)
[2020-05-25] MEDS ORDERED: ONDANSETRON INJ IV PRN (18:15)
[2020-05-25 22:00] VITALS: BP 127/80
[2020-05-25] MEDS ORDERED: CEFAZOLIN SODIUM 1000MG/VIAL IV SCH (22:00)
[2020-05-25] MEDS ORDERED: CYCLOBENZAPRINE 10MG TABLET PO NR (22:00)
[2020-05-25] MEDS: OXYCODONE HCL/ACETAMINOPHEN 5/325MG TABLET PO PRN (23:02)
[2020-05-26 00:18] VITALS: BP 125/76
[2020-05-26] MEDS: LINEZOLID 600 MG PREMIX 300 ML IV SCH ×2 (00:59→17:11)
[2020-05-26] MEDS: DIPHENHYDRAMINE 50MG/ML VIAL IV PRN ×2 (01:07→08:49)
[2020-05-26 04:00] VITALS: BP 100/51
[2020-05-26 07:54] VITALS: BP 83/52
[2020-05-26] MEDS: DEXT 5%/LACTATED RINGERS 1,000 ML IV SCH ×2 (10:06→20:18)
[2020-05-26] MEDS: OXYCODONE HCL/ACETAMINOPHEN 5/325MG TABLET PO PRN ×2 (10:31→15:27)
[2020-05-26 12:13] VITALS: BP 114/79
[2020-05-26] MEDS: PIPERACILLIN/TAZOBACTAM 3.375 G in DEXT 5% WATER 100 ML IV SCH ×5 (13:04→18:30)
[2020-05-26] MEDS: CEFAZOLIN 1000MG PREMIX 50 ML IV SCH ×2 (15:33→21:51)
[2020-05-26 15:56] VITALS: BP 131/80
[2020-05-26] MEDS: HYDROMORPHONE PCA 10MG/50ML IV PRN (16:41)
[2020-05-26] MEDS: ALLOPURINOL 300 MG TABLET PO SCH (17:11)
[2020-05-26 20:00] VITALS: BP 91/66
[2020-05-26] MEDS: BUDESONIDE 0.5MG/2ML NEB HHN SCH (22:35)
[2020-05-26] MEDS: IPRATROPIUM/ALBUTEROL 0.5-3(2.5)MG/3ML NEB HHN SCH (22:35)
[2020-05-27] VITALS: BP 110/77
[2020-05-27] MEDS: PIPERACILLIN/TAZOBACTAM 3.375 G in DEXT 5% WATER 100 ML IV SCH ×4 (00:10→17:31)
[2020-05-27] MEDS: LINEZOLID 600 MG PREMIX 300 ML IV SCH ×2 (01:21→14:20)
[2020-05-27] MEDS: IPRATROPIUM/ALBUTEROL 0.5-3(2.5)MG/3ML NEB HHN SCH ×4 (02:14→21:46)
[2020-05-27 04:00] VITALS: BP 97/62
[2020-05-27 05:46] LABS: BASOPHILS % 0.2 % (0.0-2.0); EOSINOPHILS % 0.7 % (0.0-5.0); HEMATOCRIT. 27.9 % (42.0-52.0); HEMOGLOBIN. 9.6 g/dL (14.0-18.0); LYMPHOCYTES % 8.4 % (20.0-50.0); MEAN CORPUSCULAR HEMOGLOBIN 31.6 pg (28.0-32.0); MEAN CORPUSCULAR VOLUME 91.7 fL (80.0-94.0); MONOCYTES % 5.2 % (2.0-8.0); NEUTROPHILS % 85.5 % (40.0-76.0); PLATELET 225 x1000/uL (130-400); RED BLOOD CELL COUNT 3.05 mill/uL (4.7-6.1); RED CELL DISTRIBUTION WIDTH 16.4 % (11.6-14.6)
[2020-05-27 06:06] LABS: CHLORIDE 103 mEq/L (98-107)
[2020-05-27] MEDS: DEXT 5%/LACTATED RINGERS 1,000 ML IV SCH ×2 (06:08→17:00)
[2020-05-27 06:15] LABS: TOTAL IRON BINDING CAPACITY 301 ug/dL (250-450)
[2020-05-27 06:21] LABS: FOLIC ACID (FOLATE) SERUM 9.8 ng/mL (>5.38)
[2020-05-27 07:58] VITALS: BP 90/58
[2020-05-27] MEDS: ALLOPURINOL 300 MG TABLET PO SCH ×2 (09:26→17:31)
[2020-05-27] MEDS: BUDESONIDE 0.5MG/2ML NEB HHN SCH ×3 (10:17→21:47)
[2020-05-27] MEDS ORDERED: GADOBENATE DIMEGLUMINE 529 MG/ML 10ML IV ONE (11:24)
[2020-05-27 11:56] VITALS: BP 93/53
[2020-05-27 16:57] VITALS: BP 94/60
[2020-05-27 20:00] VITALS: BP 109/59
[2020-05-28] VITALS: BP 122/54
[2020-05-28] MEDS: PIPERACILLIN/TAZOBACTAM 3.375 G in DEXT 5% WATER 100 ML IV SCH ×5 (00:08→23:40)
[2020-05-28] MEDS: LINEZOLID 600 MG PREMIX 300 ML IV SCH ×2 (01:21→13:05)
[2020-05-28] MEDS: DEXT 5%/LACTATED RINGERS 1,000 ML IV SCH ×3 (02:49→23:39)
[2020-05-28 04:00] VITALS: BP 99/62
[2020-05-28 07:46] LABS: CHLORIDE 105 mEq/L (98-107)
[2020-05-28 07:48] LABS: BASOPHILS % 0.1 % (0.0-2.0); EOSINOPHILS % 2.1 % (0.0-5.0); HEMATOCRIT. 27.4 % (42.0-52.0); HEMOGLOBIN. 9.5 g/dL (14.0-18.0); LYMPHOCYTES % 12.6 % (20.0-50.0); MEAN CORPUSCULAR HEMOGLOBIN 31.9 pg (28.0-32.0); MEAN CORPUSCULAR VOLUME 91.8 fL (80.0-94.0); MEAN PLATELET VOLUME 7.2 fl (7.4-10.4); MONOCYTES % 6.8 % (2.0-8.0); NEUTROPHILS % 78.4 % (40.0-76.0); PLATELET 224 x1000/uL (130-400); RED BLOOD CELL COUNT 2.98 mill/uL (4.7-6.1); RED CELL DISTRIBUTION WIDTH 16.2 % (11.6-14.6)
[2020-05-28 08:00] VITALS: BP 136/87
[2020-05-28] MEDS: IPRATROPIUM/ALBUTEROL 0.5-3(2.5)MG/3ML NEB HHN SCH ×4 (09:04→21:48)
[2020-05-28] MEDS: BUDESONIDE 0.5MG/2ML NEB HHN SCH ×2 (09:04→21:48)
[2020-05-28] MEDS: ALLOPURINOL 300 MG TABLET PO SCH ×2 (09:17→18:25)
[2020-05-28 12:06] VITALS: BP 101/54
[2020-05-28] MEDS: CYANOCOBALAMIN 1000MCG/ML VIAL IM SCH (13:30)
[2020-05-28] MEDS: ASCORBIC ACID 500 MG TABLET PO SCH (13:30)
[2020-05-28 16:08] VITALS: BP 110/60
[2020-05-28] MEDS: FERROUS SULFATE 325MG TABLET PO SCH (18:25)
[2020-05-28 20:11] VITALS: BP 102/66
[2020-05-29] VITALS: BP 115/59
[2020-05-29] MEDS: IPRATROPIUM/ALBUTEROL 0.5-3(2.5)MG/3ML NEB HHN SCH ×4 (01:11→21:50)
[2020-05-29] MEDS: LINEZOLID 600 MG PREMIX 300 ML IV SCH ×2 (01:42→13:08)
[2020-05-29 04:00] VITALS: BP 117/71
[2020-05-29] MEDS: FERROUS SULFATE 325MG TABLET PO SCH ×3 (06:43→17:26)
[2020-05-29] MEDS: PIPERACILLIN/TAZOBACTAM 3.375 G in DEXT 5% WATER 100 ML IV SCH ×4 (06:44→23:16)
[2020-05-29 07:04] LABS: BASOPHILS % 0.2 % (0.0-2.0); EOSINOPHILS % 1.8 % (0.0-5.0); HEMATOCRIT. 28.6 % (42.0-52.0); LYMPHOCYTES % 11.4 % (20.0-50.0); MEAN CORPUSCULAR HEMOGLOBIN 32.3 pg (28.0-32.0); MEAN CORPUSCULAR VOLUME 92.8 fL (80.0-94.0); MONOCYTES % 6.3 % (2.0-8.0); NEUTROPHILS % 80.3 % (40.0-76.0); PLATELET 237 x1000/uL (130-400); RED BLOOD CELL COUNT 3.08 mill/uL (4.7-6.1); RED CELL DISTRIBUTION WIDTH 16.2 % (11.6-14.6)
[2020-05-29] MEDS: BUDESONIDE 0.5MG/2ML NEB HHN SCH ×2 (07:33→21:50)
[2020-05-29 07:51] LABS: CHLORIDE 106 mEq/L (98-107)
[2020-05-29 08:00] VITALS: BP 103/70
[2020-05-29] MEDS: ASCORBIC ACID 500 MG TABLET PO SCH (09:02)
[2020-05-29] MEDS: ALLOPURINOL 300 MG TABLET PO SCH ×2 (09:02→17:26)
[2020-05-29] MEDS: CYANOCOBALAMIN 1000MCG/ML VIAL IM SCH (09:02)
[2020-05-29] MEDS: DEXT 5%/LACTATED RINGERS 1,000 ML IV SCH ×2 (09:07→18:28)
[2020-05-29] MEDS: DIPHENHYDRAMINE 50MG/ML VIAL IV PRN (11:53)
[2020-05-29 12:00] VITALS: BP 102/73
[2020-05-29] MEDS: HYDROMORPHONE PCA 10MG/50ML IV PRN (12:13)
[2020-05-29 16:00] VITALS: BP 99/62
[2020-05-29 20:00] VITALS: BP 93/56
[2020-05-30] VITALS: BP 100/61
[2020-05-30] MEDS: LINEZOLID 600 MG PREMIX 300 ML IV SCH ×2 (00:43→13:50)
[2020-05-30] MEDS: IPRATROPIUM/ALBUTEROL 0.5-3(2.5)MG/3ML NEB HHN SCH ×3 (01:44→14:00)
[2020-05-30 04:00] VITALS: BP 101/52
[2020-05-30] MEDS: PIPERACILLIN/TAZOBACTAM 3.375 G in DEXT 5% WATER 100 ML IV SCH ×3 (04:54→17:58)
[2020-05-30 06:42] LABS: BASOPHILS % 0.3 % (0.0-2.0); EOSINOPHILS % 1.8 % (0.0-5.0); HEMATOCRIT. 28.7 % (42.0-52.0); HEMOGLOBIN. 10.1 g/dL (14.0-18.0); LYMPHOCYTES % 10.6 % (20.0-50.0); MEAN CORPUSCULAR HEMOGLOBIN 32.4 pg (28.0-32.0); MEAN CORPUSCULAR VOLUME 91.6 fL (80.0-94.0); MEAN PLATELET VOLUME 6.7 fl (7.4-10.4); MONOCYTES % 6.8 % (2.0-8.0); NEUTROPHILS % 80.5 % (40.0-76.0); PLATELET 247 x1000/uL (130-400); RED BLOOD CELL COUNT 3.13 mill/uL (4.7-6.1); RED CELL DISTRIBUTION WIDTH 16.4 % (11.6-14.6)
[2020-05-30 07:00] LABS: CHLORIDE 105 mEq/L (98-107)
[2020-05-30 08:00] VITALS: BP 99/65
[2020-05-30] MEDS: ASCORBIC ACID 500 MG TABLET PO SCH (08:48)
[2020-05-30] MEDS: FERROUS SULFATE 325MG TABLET PO SCH ×2 (08:48→12:57)
[2020-05-30] MEDS: CYANOCOBALAMIN 1000MCG/ML VIAL IM SCH (08:48)
[2020-05-30] MEDS: ALLOPURINOL 300 MG TABLET PO SCH ×2 (08:48→17:58)
[2020-05-30] MEDS: DEXT 5%/LACTATED RINGERS 1,000 ML IV SCH ×2 (08:49→15:38)
[2020-05-30] MEDS: DIPHENHYDRAMINE 50MG/ML VIAL IV PRN (09:40)
[2020-05-30 12:00] VITALS: BP 114/66
[2020-05-30] MEDS: IRON SUCROSE COMPLEX 100 MG/5 ML ML IV SCH (13:50)
[2020-05-30] MEDS: NYSTATIN POWDER 15GM TOP SCH ×2 (14:00→15:39)
[2020-05-30 16:00] VITALS: BP 111/75
[2020-05-30 20:26] VITALS: BP 125/77
[2020-05-30] MEDS: OXYCODONE HCL/ACETAMINOPHEN 5/325MG TABLET PO PRN (20:54)
[2020-05-30] MEDS: ONDANSETRON HCL 4MG/2ML INJ IV PRN (22:19)
[2020-05-30] MEDS: MORPHINE SULFATE 4 MG/ML CPJ (NOT FOR IM USE) IV PRN (22:21)
[2020-05-31 00:41] VITALS: BP 124/79
[2020-05-31] MEDS: DEXT 5%/LACTATED RINGERS 1,000 ML IV SCH ×3 (00:42→21:18)
[2020-05-31] MEDS: CEFTRIAXONE 2 G in DEXTROSE 5% WATER 50 ML IV SCH ×2 (00:42→20:56)
[2020-05-31] MEDS: IPRATROPIUM/ALBUTEROL 0.5-3(2.5)MG/3ML NEB HHN SCH ×4 (02:58→21:20)
[2020-05-31 04:46] VITALS: BP 96/58
[2020-05-31] MEDS: OXYCODONE HCL/ACETAMINOPHEN 5/325MG TABLET PO PRN ×2 (06:21→16:28)
[2020-05-31 07:55] VITALS: BP 111/76
[2020-05-31] MEDS: MORPHINE SULFATE 4 MG/ML CPJ (NOT FOR IM USE) IV PRN ×3 (10:18→22:12)
[2020-05-31] MEDS: IRON SUCROSE COMPLEX 100 MG/5 ML ML IV SCH (10:18)
[2020-05-31] MEDS: CYANOCOBALAMIN 1000MCG/ML VIAL IM SCH (10:18)
[2020-05-31] MEDS: ASCORBIC ACID 500 MG TABLET PO SCH (10:18)
[2020-05-31] MEDS: ALLOPURINOL 300 MG TABLET PO SCH ×2 (10:18→16:26)
[2020-05-31] MEDS: DIPHENHYDRAMINE 50MG/ML VIAL IV PRN (11:44)
[2020-05-31 12:21] VITALS: BP 111/73
[2020-05-31 15:52] VITALS: BP 99/53
[2020-05-31] MEDS: NYSTATIN POWDER 15GM TOP SCH ×2 (16:26→20:56)
[2020-05-31 20:03] VITALS: BP 126/78
[2020-06-01] VITALS (7 sets, daily range): BP systolic 105–118; BP diastolic 65–72
[2020-06-01] MEDS: MORPHINE SULFATE 4 MG/ML CPJ (NOT FOR IM USE) IV PRN ×5 (01:41→20:43)
[2020-06-01] MEDS: DEXT 5%/LACTATED RINGERS 1,000 ML IV SCH ×2 (06:10→16:41)
[2020-06-01] MEDS: NYSTATIN POWDER 15GM TOP SCH ×3 (06:10→20:42)
[2020-06-01] MEDS: IPRATROPIUM/ALBUTEROL 0.5-3(2.5)MG/3ML NEB HHN SCH ×3 (08:49→13:40)
[2020-06-01] MEDS: CYANOCOBALAMIN 1000MCG/ML VIAL IM SCH (08:50)
[2020-06-01] MEDS: ALLOPURINOL 300 MG TABLET PO SCH ×2 (08:50→16:41)
[2020-06-01] MEDS: ASCORBIC ACID 500 MG TABLET PO SCH (08:50)
[2020-06-01] MEDS: IRON SUCROSE COMPLEX 100 MG/5 ML ML IV SCH (08:50)
[2020-06-01] MEDS: CEFTRIAXONE 2 G in DEXTROSE 5% WATER 50 ML IV SCH (20:23)
[2020-06-02 00:10] VITALS: BP 120/72
[2020-06-02] MEDS: MORPHINE SULFATE 4 MG/ML CPJ (NOT FOR IM USE) IV PRN ×4 (00:51→22:40)
[2020-06-02] MEDS: DEXT 5%/LACTATED RINGERS 1,000 ML IV SCH ×3 (02:46→23:00)
[2020-06-02 04:23] VITALS: BP 99/68
[2020-06-02] MEDS: NYSTATIN POWDER 15GM TOP SCH ×3 (05:59→20:57)
[2020-06-02] MEDS: OXYCODONE HCL/ACETAMINOPHEN 5/325MG TABLET PO PRN ×2 (06:18→14:42)
[2020-06-02 08:00] VITALS: BP 107/66
[2020-06-02] MEDS: ASCORBIC ACID 500 MG TABLET PO SCH (08:08)
[2020-06-02] MEDS: FERROUS SULFATE 325MG TABLET PO SCH ×3 (08:08→16:52)
[2020-06-02] MEDS: ALLOPURINOL 300 MG TABLET PO SCH ×2 (08:08→16:52)
[2020-06-02] MEDS: CYANOCOBALAMIN 1000MCG/ML VIAL IM SCH (08:08)
[2020-06-02 09:02] LABS: BASOPHILS % 0.5 % (0.0-2.0); EOSINOPHILS % 2.7 % (0.0-5.0); HEMOGLOBIN. 10.2 g/dL (14.0-18.0); LYMPHOCYTES % 17.2 % (20.0-50.0); MEAN CORPUSCULAR HEMOGLOBIN 32.4 pg (28.0-32.0); MEAN CORPUSCULAR VOLUME 92.2 fL (80.0-94.0); MEAN PLATELET VOLUME 6.6 fl (7.4-10.4); MONOCYTES % 10.1 % (2.0-8.0); NEUTROPHILS % 69.5 % (40.0-76.0); PLATELET 317 x1000/uL (130-400); RED BLOOD CELL COUNT 3.14 mill/uL (4.7-6.1); RED CELL DISTRIBUTION WIDTH 16.2 % (11.6-14.6)
[2020-06-02 09:14] LABS: CHLORIDE 108 mEq/L (98-107)
[2020-06-02 12:00] VITALS: BP 114/73
[2020-06-02] MEDS ORDERED: OXYC-523 PO (14:49)
[2020-06-02] MEDS ORDERED: NYST15PO4 TP (14:49)
[2020-06-02] MEDS ORDERED: ACET650T37 MT (14:49)
[2020-06-02] MEDS ORDERED: FERR325T23 PO (14:49)
[2020-06-02] MEDS ORDERED: ASCO500T20 PO (14:49)
[2020-06-02 16:00] VITALS: BP 100/59
[2020-06-02] MEDS ORDERED: CEPH-569 MT (18:02)
[2020-06-02 20:07] VITALS: BP 120/61
[2020-06-02] MEDS: CEFTRIAXONE 2 G in DEXTROSE 5% WATER 50 ML IV SCH (20:56)
[2020-06-03] VITALS: BP 111/62
[2020-06-03 04:39] VITALS: BP 116/56
[2020-06-03] MEDS: NYSTATIN POWDER 15GM TOP SCH ×3 (06:19→22:39)
[2020-06-03 08:00] VITALS: BP 119/72
[2020-06-03] MEDS: CYANOCOBALAMIN 1000MCG/ML VIAL IM SCH (08:02)
[2020-06-03] MEDS: ALLOPURINOL 300 MG TABLET PO SCH ×2 (08:03→16:50)
[2020-06-03] MEDS: ASCORBIC ACID 500 MG TABLET PO SCH (08:03)
[2020-06-03] MEDS: FERROUS SULFATE 325MG TABLET PO SCH ×3 (08:03→16:50)
[2020-06-03] MEDS: MORPHINE SULFATE 4 MG/ML CPJ (NOT FOR IM USE) IV PRN ×6 (08:04→22:38)
[2020-06-03] MEDS: DEXT 5%/LACTATED RINGERS 1,000 ML IV SCH ×2 (09:00→19:00)
[2020-06-03 12:00] VITALS: BP 125/75
[2020-06-03 16:00] VITALS: BP 120/65
[2020-06-03 20:00] VITALS: BP 110/70
[2020-06-03] MEDS: CEFTRIAXONE 2 G in DEXTROSE 5% WATER 50 ML IV SCH (20:28)
[2020-06-04] VITALS: BP 124/80
[2020-06-04] MEDS: MORPHINE SULFATE 4 MG/ML CPJ (NOT FOR IM USE) IV PRN ×5 (00:50→19:46)
[2020-06-04] MEDS: DIPHENHYDRAMINE 50MG/ML VIAL IV PRN (03:52)
[2020-06-04] MEDS: OXYCODONE HCL/ACETAMINOPHEN 5/325MG TABLET PO PRN (03:53)
[2020-06-04 04:00] VITALS: BP 118/80
[2020-06-04] MEDS: DEXT 5%/LACTATED RINGERS 1,000 ML IV SCH ×2 (05:32→16:17)
[2020-06-04] MEDS: NYSTATIN POWDER 15GM TOP SCH ×3 (05:34→22:46)
[2020-06-04 08:00] VITALS: BP 119/68
[2020-06-04] MEDS: FERROUS SULFATE 325MG TABLET PO SCH ×3 (08:45→17:12)
[2020-06-04] MEDS: ASCORBIC ACID 500 MG TABLET PO SCH (08:45)
[2020-06-04] MEDS: ALLOPURINOL 300 MG TABLET PO SCH ×2 (08:45→17:12)
[2020-06-04 12:00] VITALS: BP 130/52
[2020-06-04 16:00] VITALS: BP 132/60
[2020-06-04 20:00] VITALS: BP 118/79
[2020-06-04] MEDS ORDERED: MORPHINE SULFATE 4 MG/ML CPJ (NOT FOR IM USE) IV PRN (23:45)
[2020-06-05] VITALS: BP 124/84
[2020-06-05] MEDS: MORPHINE SULFATE 4 MG/ML CPJ (NOT FOR IM USE) IV PRN ×9 (00:20→22:09)
[2020-06-05] MEDS: DEXT 5%/LACTATED RINGERS 1,000 ML IV SCH ×3 (00:22→21:00)
[2020-06-05 04:30] VITALS: BP 124/79
[2020-06-05 05:48] LABS: BASOPHILS % 0.7 % (0.0-2.0); LYMPHOCYTES % 22.4 % (20.0-50.0); MEAN CORPUSCULAR HEMOGLOBIN 31.9 pg (28.0-32.0); MEAN CORPUSCULAR VOLUME 92.1 fL (80.0-94.0); MEAN PLATELET VOLUME 6.5 fl (7.4-10.4); MONOCYTES % 14.1 % (2.0-8.0); NEUTROPHILS % 59.8 % (40.0-76.0); PLATELET 389 x1000/uL (130-400); RED BLOOD CELL COUNT 3.15 mill/uL (4.7-6.1); RED CELL DISTRIBUTION WIDTH 16.1 % (11.6-14.6)
[2020-06-05] MEDS: NYSTATIN POWDER 15GM TOP SCH ×3 (06:01→21:26)
[2020-06-05 08:00] VITALS: BP 131/90
[2020-06-05] MEDS: ALLOPURINOL 300 MG TABLET PO SCH ×2 (08:42→17:04)
[2020-06-05] MEDS: ASCORBIC ACID 500 MG TABLET PO SCH (08:42)
[2020-06-05] MEDS: FERROUS SULFATE 325MG TABLET PO SCH ×3 (08:42→17:04)
[2020-06-05] MEDS: DIPHENHYDRAMINE 50MG/ML VIAL IV PRN (10:23)
[2020-06-05 12:19] VITALS: BP 93/55
[2020-06-05] MEDS ORDERED: LIDOCAINE HCL 1% 20ML VIAL (Pyxis) INJ ONE (13:59)
[2020-06-05 17:20] VITALS: BP 123/73
[2020-06-05 20:00] VITALS: BP 133/85
[2020-06-06] VITALS: BP 128/79
[2020-06-06] MEDS: MORPHINE SULFATE 4 MG/ML CPJ (NOT FOR IM USE) IV PRN ×9 (00:09→21:52)
[2020-06-06] MEDS: CEFTRIAXONE 2 G in DEXTROSE 5% WATER 50 ML IV SCH (01:01)
[2020-06-06 04:00] VITALS: BP 129/81
[2020-06-06] MEDS: NYSTATIN POWDER 15GM TOP SCH ×3 (06:28→21:59)
[2020-06-06 08:00] VITALS: BP 138/79
[2020-06-06] MEDS: ASCORBIC ACID 500 MG TABLET PO SCH (08:32)
[2020-06-06] MEDS: ALLOPURINOL 300 MG TABLET PO SCH ×2 (08:32→17:17)
[2020-06-06] MEDS: FERROUS SULFATE 325MG TABLET PO SCH ×3 (08:32→17:17)
[2020-06-06] MEDS: DEXT 5%/LACTATED RINGERS 1,000 ML IV SCH ×2 (08:32→17:17)
[2020-06-06 16:00] VITALS: BP 125/81
[2020-06-06 20:00] VITALS: BP 120/81
[2020-06-07] VITALS: BP 126/74
[2020-06-07] MEDS: CEFTRIAXONE 2 G in DEXTROSE 5% WATER 50 ML IV SCH (00:41)
[2020-06-07] MEDS: MORPHINE SULFATE 4 MG/ML CPJ (NOT FOR IM USE) IV PRN ×3 (02:04→23:15)
[2020-06-07] MEDS: DEXT 5%/LACTATED RINGERS 1,000 ML IV SCH ×3 (02:37→23:15)
[2020-06-07 04:00] VITALS: BP 119/81
[2020-06-07] MEDS: MORPHINE SULFATE 2 MG/ML CPJ (NOT FOR IM USE) IV PRN ×6 (05:02→18:34)
[2020-06-07] MEDS: NYSTATIN POWDER 15GM TOP SCH ×3 (06:00→20:47)
[2020-06-07 08:00] VITALS: BP 133/63
[2020-06-07] MEDS: ALLOPURINOL 300 MG TABLET PO SCH ×2 (08:13→18:33)
[2020-06-07] MEDS: FERROUS SULFATE 325MG TABLET PO SCH ×3 (08:13→18:33)
[2020-06-07] MEDS: ASCORBIC ACID 500 MG TABLET PO SCH (08:13)
[2020-06-07 12:00] VITALS: BP 122/70
[2020-06-07 16:00] VITALS: BP 125/68
[2020-06-07 20:00] VITALS: BP 133/90
[2020-06-08] VITALS: BP 123/79
[2020-06-08] MEDS: CEFTRIAXONE 2 G in DEXTROSE 5% WATER 50 ML IV SCH (01:41)
[2020-06-08] MEDS: MORPHINE SULFATE 4 MG/ML CPJ (NOT FOR IM USE) IV PRN ×6 (01:41→22:30)
[2020-06-08 04:00] VITALS: BP 126/86
[2020-06-08] MEDS: NYSTATIN POWDER 15GM TOP SCH ×3 (06:15→21:02)
[2020-06-08 08:00] VITALS: BP 134/78
[2020-06-08] MEDS: ASCORBIC ACID 500 MG TABLET PO SCH (08:34)
[2020-06-08] MEDS: FERROUS SULFATE 325MG TABLET PO SCH ×3 (08:34→17:26)
[2020-06-08] MEDS: ALLOPURINOL 300 MG TABLET PO SCH ×2 (08:34→17:26)
[2020-06-08] MEDS: DEXT 5%/LACTATED RINGERS 1,000 ML IV SCH (09:07)
[2020-06-08 12:00] VITALS: BP 133/76
[2020-06-08 16:00] VITALS: BP 133/78
[2020-06-08 20:09] VITALS: BP 138/87
[2020-06-08] MEDS: CEPHALEXIN 250MG CAPSULE PO SCH (21:04)
[2020-06-09] VITALS (7 sets, daily range): BP systolic 106–148; BP diastolic 70–93
[2020-06-09] MEDS: OXYCODONE HCL/ACETAMINOPHEN 5/325MG TABLET PO PRN ×3 (00:35→14:01)
[2020-06-09] MEDS: MORPHINE SULFATE 4 MG/ML CPJ (NOT FOR IM USE) IV PRN ×5 (02:34→20:09)
[2020-06-09] MEDS: NYSTATIN POWDER 15GM TOP SCH ×2 (05:33→13:31)
[2020-06-09] MEDS: CEPHALEXIN 250MG CAPSULE PO SCH ×2 (05:33→13:31)
[2020-06-09] MEDS: DIPHENHYDRAMINE 50MG/ML VIAL IV PRN (08:00)
[2020-06-09] MEDS: ASCORBIC ACID 500 MG TABLET PO SCH (08:00)
[2020-06-09] MEDS: ALLOPURINOL 300 MG TABLET PO SCH ×2 (08:00→17:34)
[2020-06-09] MEDS: FERROUS SULFATE 325MG TABLET PO SCH ×3 (08:00→17:34)
[2020-06-09] MEDS: ONDANSETRON HCL 4MG/2ML INJ IV PRN (11:09)
[2020-06-10] MEDS ORDERED: CYANOCOBALAMIN 1000MCG/ML VIAL IM SCH (09:00)
== END 2020-06-09 20:30 | DRG 304 ==
LOC: ER 12:46 → EDBEDREQ 18:39 → ENRESERV 21:13 → 6WST 22:21
PROVIDERS: ADMIT Internal Medicine; ATTEND Internal Medicine
PROC: 0RGA071 Fusion of Thoracolumbar Vertebral Joint with Autologous Tissue Substitute, Posterior Approach, Posterior Column, Open Approach (ICD-10-PCS; principal; 2020-05-25)
PROC: 00NX0ZZ Release Thoracic Spinal Cord, Open Approach (ICD-10-PCS; 2020-05-25)
PROC: 00NY0ZZ Release Lumbar Spinal Cord, Open Approach (ICD-10-PCS; 2020-05-25)
PROC: 4A11X4G Monitoring of Peripheral Nervous Electrical Activity, Intraoperative, External Approach (ICD-10-PCS; 2020-05-25)
PROC: 0RBB0ZZ Excision of Thoracolumbar Vertebral Disc, Open Approach (ICD-10-PCS; 2020-05-25)
PROC: 05HY33Z Insertion of Infusion Device into Upper Vein, Percutaneous Approach (ICD-10-PCS; 2020-06-05)
PROC: B54MZZA Ultrasonography of Right Upper Extremity Veins, Guidance (ICD-10-PCS; 2020-06-05)
PROC: B51M1ZA Fluoroscopy of Right Upper Extremity Veins using Low Osmolar Contrast, Guidance (ICD-10-PCS; 2020-06-05)
DX: M46.45 Discitis, unspecified, thoracolumbar region (principal); M48.061 Spinal stenosis, lumbar region without neurogenic claudication; G82.20 Paraplegia, unspecified; M46.25 Osteomyelitis of vertebra, thoracolumbar region; M48.04 Spinal stenosis, thoracic region; J44.9 Chronic obstructive pulmonary disease, unspecified; I10 Essential (primary) hypertension; M10.9 Gout, unspecified; Z79.01 Long term (current) use of anticoagulants; K59.00 Constipation, unspecified; M47.9 Spondylosis, unspecified; F17.210 Nicotine dependence, cigarettes, uncomplicated; R73.9 Hyperglycemia, unspecified; F14.10 Cocaine abuse, uncomplicated; G89.4 Chronic pain syndrome; D50.9 Iron deficiency anemia, unspecified; G95.9 Disease of spinal cord, unspecified; J98.11 Atelectasis; M46.49 Discitis, unspecified, multiple sites in spine; R26.2 Difficulty in walking, not elsewhere classified; N39.0 Urinary tract infection, site not specified; Z86.711 Personal history of pulmonary embolism; Z98.1 Arthrodesis status; Z93.0 Tracheostomy status; Z88.1 Allergy status to other antibiotic agents; Z88.8 Allergy status to other drugs, medicaments and biological substances
CPT/HCPCS: 36415; 36573; 71045; 72080; 72157; 72158; 76000; 80048; 80053; 80061; 80305; 81003; 82607; 82728; 82746; 83540; 83550; 83605; 83880; 84145; 84484; 85025; 85651; 86850; 86900; 87070; 87075; 88304; 88311; 93005; 94640; 95863; 95925; 95926; 95928; 95929; 95940; 96365; 97110; 97116; 97162; 97166; 97530; 99291; A9577; C1725; J0690; J0696; J1170; J1200; J2020; J2175; J2270; J2405; J2543; J2704; J3010; J3370; J3420; J3490; J7030; J7060; J7121; J7626